=== PATIENT | male | born 1960 | race Caucasian/White ===

== ENCOUNTER → 2022-09-03 07:46 | Outpatient (CLI) | payer OTHER, SELFPAY ==
--- NOTE | ~2022-09-03 | CT_ITS ---
Non-contrast Head CT History: Hallucinations, tremor Technique: Axial non-contrast imaging of the brain was performed. Dose reduction technique was used on this scan by utilizing automated exposure control and iterative reconstruction technique. The dose -length product (DLP) was 599.57 mGy-cm. Findings: There is no evidence of intracranial hemorrhage, mass lesion, or acute infarct. Brain par enchyma appears unremarkable, aside from minimal chronic white matter changes. The ventricles and guardado barachnoid spaces are normal in size. The calvarium appears normal. Mild right maxillary sinus disea se is present. The remaining visualized paranasal sinuses and mastoid air cells are clear. Impression: Minimal chronic white matter changes, otherwise unremarkable brain. Mild right maxillary sinus disease. Reviewed, dictated and finalized at location . R ENGINEER Impression: Minimal chronic white matter changes, otherwise unremarkable brain. Mild right maxillary sinus disease.
--- NOTE | ~2022-09-03 | US_ITS ---
Abdominal Sonogram: Real-time sonographic imaging of the abdomen was performed. Clinical History: Alcohol abuse, liver disease Findings: The liver appears echogenic, with no evidence of mass lesion or bile duct dilatation. Main portal vein demonstrates normal direction of flow. The spleen is normal in size without evidence of focal lesion. The gallbladder is well distended, and appears normal with no evidence of gallstone or wall thickening. The common bile duct measures 5 mm. The visualized pancreas, aorta, and IVC are un remarkable. The right kidney measures 11.2 cm in length and the left kidney measures 11.0 cm. There is no hydronephrosis or renal calculus. Impression: Diffuse fatty infiltration of the liver. Reviewed, dictated and finalized at location M. SCOPE OPERATOR Impression: Diffuse fatty infiltration of the liver.
== END ==
PROVIDERS: PCP Nurse Practitioner Family; Visit Provider Nurse Practitioner Family
DX: J32.0 Chronic maxillary sinusitis (principal); K76.0 Fatty (change of) liver, not elsewhere classified; F10.10 Alcohol abuse, uncomplicated; R63.4 Abnormal weight loss; R74.01 Elevation of levels of liver transaminase levels; R25.1 Tremor, unspecified; R44.3 Hallucinations, unspecified
CPT/HCPCS: 70450; 76700